=== PATIENT | male | born 1985 | race African-American/Black ===

== ENCOUNTER 2017-10-21 18:49 | Emergency (ER) | payer SELFPAY ==
[~2017-10-21 18:49] MED LIST: ISOVUE-370 76%-LOCM 1 ML ONE
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
[2017-10-21] MEDS ORDERED: Ibuprofen 800 MG TAB ONE (21:28)
== END 2017-10-21 21:45 | disposition home or self-care (01) ==
LOC: ERS 18:49
DX: S30.1XXA Contusion of abdominal wall, initial encounter (principal); F31.9 Bipolar disorder, unspecified; F41.9 Anxiety disorder, unspecified; F17.210 Nicotine dependence, cigarettes, uncomplicated; Z79.899 Other long term (current) drug therapy; V49.9XXA Car occupant (driver) (passenger) injured in unspecified traffic accident, initial encounter
CPT/HCPCS: 71046; 71260; 74177